=== PATIENT | female | born 1935 | race Caucasian/White ===

== ENCOUNTER 2019-09-14 17:29 | Inpatient (IN) ==
[2019-09-14 17:54] LABS: Hematocrit 36.4 % (37.0-47.0); Hemoglobin 11.4 gm/dL (12.5-16.0); Mean Cell Volume 96.6 fl (78-100); Mean Corpuscular Hemoglobin 30.2 pg (27-31); Mean Corpuscular Hgb Conc 31.3 g/dl (32-36); Mean Platelet Volume 9.4 fl (8-12.5); Neutrophil # 6.7 K/mm3 (1.3-6.0); Neutrophil % 78.2 % (42-75.0); Platelet Count 173 K/mm3 (150-450); Red Blood Count 3.77 M/mm3 (4.2-5.4); Red Cell Distribution Width 14.3 % (11.5-14.0); White Blood Count 8.5 K/mm3 (4.0-10.5)
--- NOTE | 2019-09-14 18:10 | ERNOTE ---
Lower Extremity HPI - Narrative Date of Service: 09/14/19 - General Lower Extremities Pain: hip: right Time Seen by Provider: 09/14/19 17:36 Source: patient, family, EMS Exam Limitations: no limitations - Immun/Allergies/Home Medications Immunizations: IMMUNIZATION HX Immunizations Up to Date No: unsure History of Influenza Vaccine No Hx Pneumococcal Vaccination Yes Allergies/Adverse Reactions: Allergies Allergy/AdvReac Type Severity Reaction Status Date / Time Penicillins Allergy Verified 09/14/19 17:38 - History of Present Illness Narrative: patient presents per ems with c/o right hip pain following a fall at home, was unable to ambulate Occurred: just prior to arrival Location of Incident: home Method of Injury: Reports: fell Reason for Fall: Reports: lost balance, slipped Loss of Consciousness: Reports: no loss of consciousness Modifying Factors - (Improves): Reports: rest Modifying Factors - (Worsens): Reports: movement Associated Symptoms: Reports: unable to bear weight Other Injuries: Reports: none Review of Systems - Review of Systems Constitutional: Present: See HPI EYE: Present: no symptoms reported ENT: Present: no symptoms reported Respiratory: Present: no symptoms reported Cardiology: Present: no symptoms reported Gastrointestinal/Abdominal: Present: no symptoms reported Genitourinary: Present: no symptoms reported Musculoskeletal: Present: See HPI, muscle pain, muscle stiffness, joint pain Skin: Present: no symptoms reported Neurological: Present: no symptoms reported Endocrine: Present: no symptoms reported Hematologic/Lymphatic: Present: no symptoms reported Psych: Present: no symptoms reported Medical History (Last Reviewed 09/14/19 @ 18:36 by Lillian Dudley RN) HTN (hypertension) Surgical History: Surgical History (Last Reviewed 09/14/19 @ 18:36 by Lillian Dudley RN) History of creation of ostomy Hx of ileostomy Hx of knee surgery Social History: (Last Reviewed 09/14/19 @ 18:36 by Lillian Dudley RN) Tobacco: Smoking Status: Current every day smoker tobacco type: cigarettes Smoking cigarettes per day: 10 Alcohol: alcohol intake: current alcohol intake frequency: holiday/special occasion Substance Use: substance use type: does not use Physical Exam - Physical Exam General Appearance: Present: mild distress, anxious Head Exam: Present: normal inspection, no evidence of injury Eye Exam: Normal inspection: bilateral, PERRL: bilateral, EOMI: bilateral Ears, Nose, Throat: Present: normal ENT inspection, normal pharynx Neck: Present: normal inspection, nontender Respiratory: Present: no respiratory distress, normal breath sounds, no accessory muscle use, chest nontender, lungs clear Cardiovascular/Chest: Present: regular rate, rhythm, no murmur, normal peripheral pulses Gastrointestinal/Abdominal: Present: normal bowel sounds, nontender, nondistended, soft, no organomegaly Back Exam: Present: normal inspection, normal range of motion, no CVA tenderness, no vertebral tenderness Extremity Exam: Present: normal except - - pain over greater trochanter right hip Neurological Exam: Present: alert, oriented, normal mood/affect, no motor/senso ry deficits Skin Exam: Present: normal color, warm/dry Lymphatic Exam: Present: no adenopathy Progress - Date and Time Seen: Date and Time: 09/14/19 19:11 discussed lab and x-rays with patient, case discussed with dr bynum, to admit to observation in observation - Results and Orders Patient's Lab Results:: I have reviewed the patient's lab results. - Vital Signs Patient's Vital Signs:: I have reviewed the patient's vital signs. Vital Signs: Vital Signs 09/14/19 17:31 Temperature 36.8 C Pulse Rate 105 H Respiratory Rate 18 Blood Pressure 197/78 H O2 Sat by Pulse Oximetry 92 L - EKG EKG #1 EKG: NSR EKG read: Interp. by me - X-Ray X-Ray #1 X-Ray: chest Interpretation: Interp. by me - no acute process pelvis right inferior pelvic rami fx - Progress/Reassessment Chief Complaint: Hip Pain/Injury Progress:: Unchanged - Transfer of Care Expected Disposition: Admit Plan - Plan Plan: to admit to observtion Departure Clinical Impression: Pelvic fracture - Departure Disposition: Short Term Hospital Inpatient Condition: Stable
[2019-09-14 18:11] LABS: Albumin * 3.1 gm/dl (3.4-5.0); Anion Gap 11.7 mmol/L (6.8-13.8); BUN/Creatinine Ratio 12.6 (9.0-21.6); Bilirubin, Total 0.2 mg/dL (0.0-1.1); Ca. Corrected For Albumin 8.3 mg/dL (8.4-10.2); Calcium * 7.9 mg/dL (7.9-10.9); Carbon Dioxide 25.2 mmol/L (24-32.6); Potassium 4.9 mmol/L (3.4-4.6); Total Protein 7.6 gm/dL (6.2-8.2)
[2019-09-14 18:13] LABS: INR 1.01 INR (0.92-1.08); Partial Thrombolplastin Time 24.5 Seconds (24-32)
[2019-09-14] MEDS ORDERED: MORPHINE SULFATE 4 MG/ML SYRG IV PRN (19:15)
[2019-09-14] MEDS: MORPHINE SULFATE 4 MG/ML SYRG IV PRN (20:48)
[2019-09-14] MEDS: NORMAL SALINE 1,000 ML IV PRN (22:03)
[2019-09-15] MEDS: MORPHINE SULFATE 4 MG/ML SYRG IV PRN ×2 (01:00→04:57)
[2019-09-15] MEDS: NORMAL SALINE 1,000 ML IV PRN ×2 (05:59→14:07)
[2019-09-15] MEDS: MORPHINE SULFATE 2 MG/ML DISP.SYRIN IV PRN ×5 (08:14→22:31)
[2019-09-15] MEDS ORDERED: FLU VACC QS2019-20(6MOS UP)/PF 60 MCG/0.5 ML SYRINGE IM ONE (10:00)
--- NOTE | 2019-09-15 10:57 | HP ---
Chief Complaint - Chief Complaint Date of Service: 09/15/19 Time of Service: 10:57 Chief Complaint: pelvic pain History of Present Illness: 84-year-old female with ground-level fall yesterday, unable to ambulate on it. X-rays obtained in the ER which showed inferior rami fracture on the right side. Stable and nondisplaced. Patient was admitted for pain control and likely will need placement as she will not be able to take care of her ADLs as she previously was able to prior to falling and having a fracture. Patient has a history of high blood pressure which she takes one blood pressure medicine, currently unknown, but otherwise has no other real medical issues. Medical History (Last Reviewed 09/14/19 @ 20:51 by Eve Kim RN) HTN (hypertension) Surgical History: Surgical History (Last Updated 09/14/19 @ 20:52 by Eve Kim RN) History of creation of ostomy History of partial hysterectomy Hx of ileostomy Hx of knee surgery Family History: Family History (Last Updated 09/14/19 @ 20:53 by Eve Kim RN) Mother Diabetes Brother Diabetes Social History: (Last Reviewed 09/14/19 @ 20:53 by Eve Kim RN) Tobacco: Smoking Status: Current every day smoker tobacco type: cigarettes Smoking cigarettes per day: 10 Alcohol: alcohol intake: current alcohol intake frequency: holiday/special occasion Substance Use: substance use type: does not use Review Of Systems (GEN) - Review of Systems Generalized/Overall Review: Present: No Symptoms Reported EENTM: Present: No Symptoms Reported Respiratory: Absent: Cough, Shortness of Breath Cardiac: Absent: Chest Pain, Edema, Palpitations Abdominal: Present: No Symptoms Reported Musculoskeletal: Present: Other - Pelvic pain with movement Neurological: Present: No Symptoms Reported Skin: Present: No Symptoms Reported Endocrine: Present: No Symptoms Reported Immunizations: IMMUNIZATION HX Immunizations Up to Date No: unsure History of Influenza Vaccine No Hx Pneumococcal Vaccination Yes Allergies/Adverse Reactions: Allergies Allergy/AdvReac Type Severity Reaction Status Date / Time Penicillins Allergy Verified 09/14/19 20:53 Home Medications: HOME MEDICATIONS Valsartan 80 mg PO DAILY 09/15/19 [Last Taken 09/14/19] Exam - Exam Vital Signs: Vital Signs - Last Taken Temp 36.6 C 09/15/19 06:56 Pulse 84 09/15/19 06:56 Resp 16 09/15/19 06:56 BP 116/47 09/15/19 06:56 Pulse Ox 98 09/15/19 06:56 Constitutional: Present: Alert, Oriented x3, Cooperative, Elderly Eye Exam: bilateral eye: normal inspection, PERRL, EOMI Neck: Present: non-tender, supple Back Exam: Present: normal inspection, no CVA tenderness, no vertebral tenderness Respiratory: Present: lungs clear, normal breath sounds Cardiovascular/Chest: Present: normal peripheral pulses, regular rate, rhythm, edema - Trace bilaterally Peripheral Pulses: carotid (R): 2+, carotid (L): 2+, dorsalis-pedis (R): 2+, dorsalis-pedis (L): 2+ Abdomen: Present: Normal bowel sounds, soft, nontender /Rectal: Present: Exam deferred Extremity: Present: other - Significant pelvic discomfort with right lower extremity range motion Neurologic: Present: no motor/sensory deficits, normal mood/affect Appearance: Present: appropriate appearance, appropriate insight Eye contact: Present: cooperative, good eye contact, normal speech Thoughts: Present: normal thought pattern, normal mood /affect Diagnostic Studies: Abnormal Lab Results 09/14/19 09/14/19 Range/Units 17:45 17:45 RBC 3.77 L (4.2-5.4) M/mm3 Hgb 11.4 L (12.5-16.0) gm/dL Hct 36.4 L (37.0-47.0) % MCHC 31.3 L (32-36) g/dl RDW 14.3 H (11.5-14.0) % Immature Gran % (Auto) 0.50 H (0.001-0.429) % Immature Gran # (Auto) 0.04 H (0.000-0.0310) K/mm3 Neutrophils % 78.2 H (42-75.0) % Lymphocytes % 14.4 L (20-51) % Neutrophils # 6.7 H (1.3-6.0) K/mm3 Lymphocytes # 1.23 L (1.5-3.5) k/mm3 Potassium 4.9 H (3.4-4.6) mmol/L BUN 28 H (3-23) mg/dL Creatinine 2.23 H (0.4-1.4) mg/dL Est GFR (Non-Af Amer) 22 L D (60-130) mL/min Random Glucose 111 H (70-110) mg/dL Calcium Adj for Albumin 8.3 L (8.4-10.2) mg/dL ALT 17 L (19-67) U/L Albumin 3.1 L (3.4-5.0) gm/dl Laboratory Results WBC 8.5 K/mm3 (4.0-10.5) 09/14/19 17:45 RBC 3.77 M/mm3 (4.2-5.4) L 09/14/19 17:45 Hgb 11.4 gm/dL (12.5-16.0) L 09/14/19 17:45 Hct 36.4 % (37.0-47.0) L 09/14/19 17:45 MCV 96.6 fl (78-100) 09/14/19 17:45 MCH 30.2 pg (27-31) 09/14/19 17:45 MCHC 31.3 g/dl (32-36) L 09/14/19 17:45 RDW 14.3 % (11.5-14.0) H 09/14/19 17:45 Plt Count 173 K/mm3 (150-450) 09/14/19 17:45 MPV 9.4 fl (8-12.5) 09/14/19 17:45 Immature Gran % (Auto) 0.50 % (0.001-0.429) H 09/14/19 17:45 Immature Gran # (Auto) 0.04 K/mm3 (0.000-0.0310) H 09/14/19 17:45 Neutrophils % 78.2 % (42-75.0) H 09/14/19 17:45 Lymphocytes % 14.4 % (20-51) L 09/14/19 17:45 Monocytes % 5.6 % (0.0-9) 09/14/19 17:45 Eosinophils % 1.1 % (0.0-3.0) 09/14/19 17:45 Basophils % 0.2 % (0.0-1.0) 09/14/19 17:45 Nucleated RBC % 0.0 k/mm3 (0-1) 09/14/19 17:45 Neutrophils # 6.7 K/mm3 (1.3-6.0) H 09/14/19 17:45 Lymphocytes # 1.23 k/mm3 (1.5-3.5) L 09/14/19 17:45 Monocytes # 0.5 k/mm3 (0.0-1.0) 09/14/19 17:45 Eosinophils # 0.1 k/mm3 (0.0-0.7) 09/14/19 17:45 Absolute Basophils 0.0 k/mm3 (0.0-0.1) 09/14/19 17:45 PT 10.0 Seconds (9.1-10.7) 09/14/19 17:45 INR (Anticoag Therapy) 1.01 INR (0.92-1.08) 09/14/19 17:45 PTT ([place]) 24.5 Seconds (24-32) 09/14/19 17:45 Sodium 134 mmol/L (132-142) 09/14/19 17:45 Plasma Sodium 134 mmol/L (130-142) 09/14/19 17:45 Potassium 4.9 mmol/L (3.4-4.6) H 09/14/19 17:45 Chloride 102 mmol/L (97-106) 09/14/19 17:45 Carbon Dioxide 25.2 mmol/L (24-32.6) 09/14/19 17:45 Anion Gap 11.7 mmol/L (6.8-13.8) 09/14/19 17:45 BUN 28 mg/dL (3-23) H 09/14/19 17:45 Creatinine 2.23 mg/dL (0.4-1.4) H 09/14/19 17:45 Est GFR (Non-Af Amer) 22 mL/min (60-130) L D 09/14/19 17:45 BUN/Creatinine Ratio 12.6 (9.0-21.6) 09/14/19 17:45 Random Glucose 111 mg/dL (70-110) H 09/14/19 17:45 Calcium 7.9 mg/dL (7.9-10.9) 09/14/19 17:45 Calcium Adj for Albumin 8.3 mg/dL (8.4-10.2) L 09/14/19 17:45 Total Bilirubin 0.2 mg/dL (0.0-1.1) 09/14/19 17:45 AST 22 U/L (0-48) 09/14/19 17:45 ALT 17 U/L (19-67) L 09/14/19 17:45 Alkaline Phosphatase 135 U/L (50-170) 09/14/19 17:45 Total Protein 7.6 gm/dL (6.2-8.2) 09/14/19 17:45 Albumin 3.1 gm/dl (3.4-5.0) L 09/14/19 17:45 Blood Type O Positive 09/14/19 17:45 Antibody Screen Negative 09/14/19 17:45 Assessment/Plan - Narrative Narrative: Patient brought in as a patient for intractable pelvic pain following ground- level fall. Patient was getting morphine for pain control which was adequate though she was requiring frequently. We will also add [place] 53 25 to be taken every 4 hours as needed. We will start to wean her off IV pain medicine. We will resume her blood pressure medication when her daughter brings it back in for us to know what it is. Patient currently denies any symptoms from elevated blood pressure. Currently likely as high as it is due to pain as she did take her medicine definition. Patient start on a regular diet. SCDs to be worn while in bed. Nurse to call with questions or concerns. Patient will likely need placement to short-term nursing facility as patient will not be able to take care of herself or her ADLs as she previously was independent prior to this. - Assessment/Plan (1) Pelvic fracture Problem: Acute (2) Hypertension Problem: Chronic
[2019-09-15 19:56] LABS: Anion Gap 10.9 mmol/L (6.8-13.8); BUN/Creatinine Ratio 13.8 (9.0-21.6); Calcium * 7.2 mg/dL (7.9-10.9); Carbon Dioxide 21.2 mmol/L (24-32.6); Estimated Creat Clear 15.8; Potassium 5.1 mmol/L (3.4-4.6)
[2019-09-15] MEDS ORDERED: NICOTINE 14 MG PATC TD SCH (20:30)
[2019-09-15] MEDS ORDERED: NICOTINE 21 MG PATC TD SCH (21:15)
[2019-09-16] MEDS: HYDROcodone/ACETAMINOPHEN 1 EACH TABLET PO PRN ×2 (02:23→10:43)
[2019-09-16] MEDS ORDERED: NORMAL SALINE 1,000 ML IV SCH (12:00)
--- NOTE | 2019-09-16 12:07 | PN ---
Subjective - Date and Time Seen Date: 09/16/19 Time: 11:58 Subjective Narrative: She did well overnight, no acute events. Still having significant pain with any movement. Unable to tolerate PT due to pain. She did have a bump in her creatinine, up from admission. Her vitals have been stable and she is afebrile. Objective - Review of Systems Generalized/Overall Review: Denies: Weakness, Chills, Fever EENTM: Reports: No Symptoms Reported Respiratory: Denies: Cough, Shortness of Breath Cardiac: Denies: Chest Pain, Palpitations Abdominal: Reports: No Symptoms Reported Genitourinary Symptoms: Reports: No Symptoms Reported Musculoskeletal Complaints: Reports: Other - pelvic pain Neurological: Reports: No Symptoms Reported Skin: Reports: No Symptoms Reported - Vitals Vitals: Last Vital Signs Temp 36.6 C 09/16/19 10:41 Pulse 105 H 09/16/19 10:41 Resp 24 H 09/16/19 10:41 BP 96/46 09/16/19 10:41 Pulse Ox 92 L 09/16/19 10:41 - Abnormal Lab Findings Abnormal Lab Findings: Abnormal Lab Results 09/15/19 Range/Units 19:35 Potassium 5.1 H (3.4-4.6) mmol/L Carbon Dioxide 21.2 L (24-32.6) mmol/L BUN 35 H (3-23) mg/dL Creatinine 2.53 H (0.4-1.4) mg/dL Est GFR (Non-Af Amer) 19 L (60-130) mL/min Calcium 7.2 L (7.9-10.9) mg/dL - Exam Constitutional: Present: Alert, Oriented x3, Cooperative, Elderly Neck: Present: non-tender, supple Respiratory: Present: lungs clear, normal breath sounds Cardiovascular/Chest: Present: normal peripheral pulses, regular rate, rhythm Extremity: Present: leg pain - RLE with movement Skin Exam: Present: normal color Eye contact: Present: cooperative, good eye contact Thoughts: Present: normal thought pattern, normal mood /affect Assessment/Plan Plan Narrative: Patient stable though with significant pain. PT unable to work with her due to this the recommendation is nursing facility for strength and conditioning to work through this pain as she would not be able to complete ADLs or be safe on her own. I agree with this prognosis. Continue pain medicine as directed, will transition her to orals. Blood pressure well controlled. Patient did have an acute kidney injury, restarted IV fluids. Was discussed with patient to increase fluid intake. Waiting on placement Nurse will call with questions or concerns. - Problems/Diagnosis (1) Pelvic fracture Problem: Acute (2) Hypertension Problem: Chronic (3) [place] (acute kidney injury) Problem: Acute
[2019-09-16 12:22] LABS: Anion Gap 13.4 mmol/L (6.8-13.8); Calcium * 7.9 mg/dL (7.9-10.9); Carbon Dioxide 19.4 mmol/L (24-32.6); Estimated Creat Clear 12.4; Potassium 5.8 mmol/L (3.4-4.6)
[2019-09-16] MEDS ORDERED: DEXTROSE 50%-WATER 50 ML SYRG IV ONE (13:44)
[2019-09-16] MEDS ORDERED: INSULIN LISPRO PROTAMIN/LISPRO 100 UNITS/ML VIAL SC SCH (13:45)
[2019-09-16] MEDS ORDERED: INSULIN LISPRO PROTAMIN/LISPRO 100 UNITS/ML VIAL SC ONE (13:53)
--- NOTE | 2019-09-16 13:54 | DS ---
Transfer Discharge Summary - Diagnosis(s)/Problems (1) Acute renal failure Problem: Acute (2) Pelvic fracture Problem: Acute (3) Hypertension Problem: Chronic (4) BAY[place] (acute kidney injury) Problem: Acute - Course Description of Stay: [age]-year-old female presented to the hospital after a ground-level fall which resulted in right inferior rami pelvic fracture that was stable, nondisplaced, nonangulated. Patient was hoping to be placed in SNF for PT and OT due to pain and patient's inability to perform ADLs on her own. While here her kidney function continued to deteriorate to the point of transfer where her GFR was 15 and creatinine was 3.2. Her potassium also increased up to 5.8. She was given 10 units of lispro insulin as well as half amp of D50. While here her vital signs been stable she is been afebrile. Patient's only medical history is hypertension which was well controlled with losartan. That was held today due to worsening kidney function. Patient on any other nephrotoxic medications. Of note patient states that she had acute renal failure while in [place] a couple years back that improved on its own and she did not require dialysis. Recommend to be transferred to higher level of care facility with nephrology on board. She has been accepted to [facility]. Procedures Performed: none - Results and Findings Results and Findings: Laboratory Results - last 24 hr 09/15/19 09/16/19 19:35 12:08 Sodium 132 130 L Plasma Sodium 132 130 Potassium 5.1 H 5.8 H Chloride 105 103 Carbon Dioxide 21.2 L 19.4 L Anion Gap 10.9 13.4 BUN 35 H 45 H Creatinine 2.53 H 3.22 H D Est GFR (Non-Af Amer) 19 L 15 L D BUN/Creatinine Ratio 13.8 14.0 Random Glucose 107 106 Calcium 7.2 L 7.9 - Medications Medications: Active Medications Hydrocodone Bitart/Acetaminophen ([place] 5-325) 1 each PO Q4H PRN PRN Reason: Pain Stop: 10/15/19 11:23 Last Admin: 09/16/19 10:43 Dose: 1 each Documented by: Sodium Chloride (Sodium Chloride 0.9%) 1,000 mls @ 125 mls/hr IV .Q8H SIVA Stop: 10/16/19 12:01 Last Admin: 09/16/19 12:54 Dose: Not Given Documented by: Morphine Sulfate (Morphine Sulfate) 2 mg IV Q1H PRN PRN Reason: Severe Pain (pain scale 7-10) Stop: 10/14/19 19:16 Last Admin: 09/15/19 22:31 Dose: 2 mg Documented by: Nicotine (Nicoderm) 21 mg TD Q24H [facility] Stop: 10/15/19 21:16 Last Admin: 09/15/19 21:23 Dose: 21 mg Documented by: (Valsartan 80 Mg) 80 mg PO DAILY [facility] Stop: 10/15/19 12:46 Last Admin: 09/16/19 08:03 Dose: 80 mg Documented by: Discontinued Medications Sodium Chloride (Sodium Chloride 0.9%) 1,000 mls @ 125 mls/hr IV .Q8H PRN PRN Reason: HYDRATION Stop: 10/14/19 19:16 Last Infusion: 09/15/19 20:00 Dose: 0 mls/hr Documented by: Morphine Sulfate (Morphine Sulfate) 2 mg IV Q1H PRN PRN Reason: Severe Pain (pain scale 7-10) Stop: 10/14/19 19:16 Last Admin: 09/15/19 04:57 Dose: 2 mg Documented by: Nicotine (Nicoderm) 14 mg TD DAILY [facility] Stop: 10/15/19 20:31 Last Admin: 09/15/19 22:03 Dose: Not Given Documented by: - Disposition Disposition: Still a patient Condition: Serious Discharge Date: 09/16/19 Discharge Time: 13:53
[2019-09-16 14:59] VITALS: BP 109/52
[2019-09-16] MEDS: MORPHINE SULFATE 2 MG/ML DISP.SYRIN IV PRN (15:05)
== END 2019-09-16 15:18 | disposition short-term general hospital (02) | DRG 683 ==
LOC: MS 17:29 → ER 17:29 → OBSVTOIN 19:07 → MS 20:20
PROVIDERS: ADMIT Family Medicine; ATTEND Family Medicine
DX: S32.591A Other specified fracture of right pubis, initial encounter for closed fracture; N17.9 Acute kidney failure, unspecified; F17.210 Nicotine dependence, cigarettes, uncomplicated; I10 Essential (primary) hypertension; W01.0XXA Fall on same level from slipping, tripping and stumbling without subsequent striking against object, initial encounter
CPT/HCPCS: 36415; 71010; 71045; 73502; 80048; 80053; 85025; 85610; 85730; 86850; 93005; 97162